=== PATIENT | male | born 1960 | race African-American/Black ===

== ENCOUNTER 2019-09-24 15:03 | Emergency (ER) | payer MEDICARE, MEDICAID ==
[~2019-09-24] VITALS: Ht 162.6 cm; Wt 78.0 kg
[2019-09-24] MEDS ORDERED: SODIUM CHLORIDE 0.9% 1,000 ML IV ONE (17:12)
[2019-09-24] MEDS ORDERED: ONDANSETRON HCL 4MG/2ML INJ IV STA (17:12)
[2019-09-24] MEDS: KETOROLAC 30MG/ML VIAL IV STA ×2 (17:44→17:46)
[2019-09-24 17:46] LABS: BASOPHILS % 0.5 % (0.0-2.0); EOSINOPHILS % 3.7 % (0.0-5.0); HEMATOCRIT. 49.9 % (42.0-52.0); HEMOGLOBIN. 16.3 g/dL (14.0-18.0); LYMPHOCYTES % 14.2 % (20.0-50.0); MEAN CORPUSCULAR VOLUME 95.1 fL (80.0-94.0); MEAN PLATELET VOLUME 10.1 fl (7.4-10.4); MONOCYTES % 6.2 % (2.0-8.0); NEUTROPHILS % 75.4 % (40.0-76.0); PLATELET 181 x1000/uL (130-400); RED BLOOD CELL COUNT 5.25 mill/uL (4.7-6.1); RED CELL DISTRIBUTION WIDTH 14.4 % (11.6-14.6)
[2019-09-24 17:55] LABS: CHLORIDE 107 mEq/L (98-107)
[2019-09-24 21:31] VITALS: BP 132/78
== END 2019-09-24 21:31 | disposition home or self-care (01) ==
LOC: ER 15:03
DX: R53.1 Weakness (principal); B34.9 Viral infection, unspecified; I10 Essential (primary) hypertension; E78.00 Pure hypercholesterolemia, unspecified; F12.10 Cannabis abuse, uncomplicated; F17.210 Nicotine dependence, cigarettes, uncomplicated; Z71.6 Tobacco abuse counseling
CPT/HCPCS: 36415; 71045; 80053; 83880; 84484; 85025; 85379; 93005; 96374; 99284; 99406; J1885; J2405; J7030